=== PATIENT | female | born 1950 | race Caucasian/White ===

== ENCOUNTER 2019-04-25 11:46 | Emergency (ER) | payer OTHER, MEDICARE, BC ==
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
[2019-04-25] MEDS ORDERED: Acetaminophen/oxyCODONE 325-5 MG Tab PO ONE (12:05)
[2019-04-25] MEDS ORDERED: Ondansetron 4 MG Tab.DIS PO ONE (12:05)
--- NOTE | 2019-04-25 13:00 | CT ---
Head CT Technique: Multiple axial sections through the brain were obtained. Intravenous contrast was not utilized. Comparison: No prior intracranial imaging is available. Findings: Ventricles along with basal cisterns and sulci over the convexities are within normal limits for the patient's age. No abnormal parenchymal densities are seen. No evidence of intracranial hemorrhage. No midline shift or mass effect is seen. Bone window settings were reviewed. Visualized mastoid sinuses and paranasal sinuses showed nothing acute. No acute calvarial abnormality is appreciated. Impression: 1. No acute intracranial abnormality is appreciated. Diagnostic code #1 Study was dictated in MDT
--- NOTE | 2019-04-25 13:00 | CT ---
CT cervical spine Technique: Multiple axial sections through the cervical spine were obtained. Study obtained from above C1 inferiorly to the top of T2. Reconstructed sagittal and coronal images were obtained. Comparison: No prior cervical spine imaging. Findings: Mild anterior osteophytes are seen at C4-C5 and C6-C7. Vertebral body heights are maintained. Diffuse degenerative apophyseal change is seen throughout the cervical spine. Mild bilateral neural foraminal stenosis is noted at C3-C4. Minimal left-sided neural foraminal stenosis is noted at C4-C5. No bony central canal stenosis is seen. No acute subluxation is seen. Impression: 1. Degenerative change as noted above. 2. Nothing acute is appreciated on CT study of the cervical spine. Diagnostic code #2 Study was dictated in MDT
== END 2019-04-25 15:20 | disposition home or self-care (01) ==
LOC: JD.ED 11:46
DX: S13.4XXA Sprain of ligaments of cervical spine, initial encounter (principal); S00.03XA Contusion of scalp, initial encounter; Z88.2 Allergy status to sulfonamides; Z79.899 Other long term (current) drug therapy; V49.9XXA Car occupant (driver) (passenger) injured in unspecified traffic accident, initial encounter; Y92.411 Interstate highway as the place of occurrence of the external cause
CPT/HCPCS: 70450; 72125; 99284; A9270; 99283